=== PATIENT | male | born 1965 | race Caucasian/White ===

== ENCOUNTER → 2020-03-21 00:01 | Outpatient (BNVA) | payer BC, SELFPAY | PROVIDERS: Family Provider Nurse Practitioner Family; PCP Nurse Practitioner Family; Visit Provider Registered Nurse | DX: Z00.00 Encounter for general adult medical examination without abnormal findings (principal); R79.89 Other specified abnormal findings of blood chemistry; E78.5 Hyperlipidemia, unspecified | CPT/HCPCS: 80053; 80061; 84402; 84403; 85025 ==

== ENCOUNTER → 2020-07-09 13:48 | Outpatient (BNVA) | payer BC, SELFPAY | PROVIDERS: Family Provider Nurse Practitioner Family; PCP Nurse Practitioner Family; Visit Provider Nurse Practitioner Family | DX: R50.9 Fever, unspecified (principal); Z11.59 Encounter for screening for other viral diseases | CPT/HCPCS: 87635 ==